=== PATIENT | male | born 2005 | race Two or more races ===

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

== ENCOUNTER 2023-01-09 17:43 | Emergency (ER) | payer MEDICAID, SELFPAY ==
[2023-01-09 18:17] VITALS: BP 109/74; PULSE 59; RESP 18; TEMP 36.9; O2SAT 99; BMI 19.8
--- NOTE | 2023-01-09 18:18 | ED.GENADULT ---
HPI - General Adult General Chief complaint: Head Injury Stated complaint: injury behind left ear Related Data Previous Rx's Medication Instructions Recorded doxycycline monohydrate 100 mg 100 mg PO BID 10 days #20 tabs 07/01/22 tablet valacyclovir 1 gram tablet 1,000 mg PO BID 10 days #20 tabs 07/08/22 (Valtrex) amoxicillin 875 mg tablet 875 mg PO BID #10 tabs 12/11/22 Allergies Allergy/AdvReac Type Severity Reaction Status Date / Time No Known Allergies Allergy Verified 01/09/23 18:17 [facility] Social History Social History Alcohol intake: current Alcohol intake frequency: holidays/special occasions only Substance Use Type: Marijuana Advance Directives: No Advance Directives Information Provided: No Current occupational status: employed 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 patietn denies any loss of concsisounss, or any other complaints. imaging ordered. Discharge Plan Discharge Clinical Impression: Closed head injury Patient Disposition: Elopement Prescriptions: No Action doxycycline monohydrate 100 mg tablet 100 mg PO BID 10 Days Qty: 20 0RF valacyclovir [Valtrex] 1 gram tablet 1,000 mg PO BID 10 Days Qty: 20 0RF amoxicillin 875 mg tablet 875 mg PO BID Qty: 10 0RF Interventions: LWBS Worksheet Last Done: 01/09/23 21:23 Discharge Date/Time: 01/09/23 21:23
== END 2023-01-09 21:23 | disposition left against medical advice (07) ==
PROVIDERS: Emergency Provider Emergency Medicine; PCP Internal Medicine
DX: S09.90XA Unspecified injury of head, initial encounter (principal); X58.XXXA Exposure to other specified factors, initial encounter; Y93.89 Activity, other specified; Y92.9 Unspecified place or not applicable; Y99.9 Unspecified external cause status
CPT/HCPCS: 99281

== ENCOUNTER 2024-03-21 20:14 | Emergency (ER) | payer MEDICAID, SELFPAY ==
--- NOTE | ~2024-03-21 | XR_ITS ---
EXAMINATION: XR HAND, RIGHT CLINICAL INFORMATION: Trauma. COMPARISON: None available. TECHNIQUE: Three views of the right hand. FINDINGS: There is a fracture of the distal tuft of the distal phalanx of the ring finger. Small fracture fragment slightly displaced from the tuft. XR/XR hand RT min 3V IMPRESSION: Fracture of the distal tuft of the distal phalanx of the ring finger. Electronically signed by: Gabriel Izquierdo MD 03/21/2024 10:17 PM EDT
[2024-03-21 20:37] VITALS: BP 115/56; PULSE 72; RESP 18; TEMP 37.1; O2SAT 95; BMI 21.3
--- NOTE | 2024-03-21 20:39 | ED_ITS ---
HPI - General Adult General Chief complaint: Extremity Injury, Upper Stated complaint: closed finger in car door, nail came off Time Seen by Provider: 03/21/24 21:37 Source: patient, RN notes reviewed and old records reviewed Mode of arrival: ambulatory Limitations: no limitations History of Present Illness ED Provider: Susana HPI narrative: 19-year-old male presents for evaluation of right 4th finger injury. Patient reports that after work this morning around 3:00 a.m. he accidentally slammed his right 4th finger in the car door. He presented to the ER earlier this morning but left prior to being seen due to wait time He represents due to the pain and bleeding Patient reports that the nail of the finger is ?hanging on by a thread. ? Related Data Previous Rx's ?Medication ?Instructions ?Recorded doxycycline monohydrate 100 mg 100 mg PO BID 10 days #20 tabs 07/01/22 tablet valacyclovir 1 gram tablet 1,000 mg PO BID 10 days #20 tabs 07/08/22 (Valtrex) amoxicillin 875 mg tablet 875 mg PO BID #10 tabs 12/11/22 cephalexin 500 mg capsule 500 mg PO QID #28 caps 03/21/24 Allergies Allergy/AdvReac Type Severity Reaction Status Date / Time No Known Allergies Allergy Verified 03/21/24 20:39 Review of Systems Constitutional: Constitutional: Denies body ache(s), Denies chills and Denies fever(s) Musculoskeletal: Musculoskeletal: Reports arthralgias, Reports joint swelling and Reports limited range of motion Integumentary/Breasts: Skin/Breast: Reports wounds PMFSH Social History Social History Alcohol intake: current Alcohol intake frequency: holidays/special occasions only Substance Use Type: Marijuana Advance Directives: No Advance Directives Information Provided: No Current occupational status: employed 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, 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 Exam ED Vital Signs: Vital Signs - 24 hr 03/21/24 20:37 Temperature 98.7 F Pulse Rate 72 Respiratory Rate 18 Blood Pressure 115/56 L Pulse Oximetry 95 Oxygen Delivery Method Room Air BMI result Body Mass Index 21.3 Const General: healthy appearing, comfortable, no acute distress, alert and awake Nutritional Appearance: well nourished Orientation/consciousness: patient oriented x3 Skin General skin exam: elasticity normal Neuro General: patient oriented x3 Cranial nerves: Yes Bilaterally intact EOM present Cognition (Neuro): normal cognition Extrem Other: Patient has mild edema to the distal right 4th finger. There is dried blood underneath the fingernail which is adhered to the nail bed crooked Course Course Course Narrative: This is an RME done by [facility] Negron: Additional HPI, ROS, PE not included below will be deferred to primary provider. 19-year-old male presenting with right hand pain after closing his hand in the car door. Nail came off 4th digit. Appearance: Alert.? Oriented X3.? No acute cardiopulmonary distress distress.? Head: Normocephalic, atraumatic, no step-offs or deformities ENT: Pharynx normal.??External ears normal, TMs normal bilaterally and EAC's normal. No pain with manipulation of external ears bilaterally. No mastoid tenderness. Neck: Normal inspection.? Neck supple.? CVS: Pulses normal.? Respiratory: No respiratory distress.? Abdomen: Soft and nontender.? Skin: ? Normal skin color. Extremities: 4th digit wrapped Neuro: Oriented X 3.? No motor deficit.? No sensory deficit. Reevaluation(s) Reevaluation #1: Attempted to remove the nail plate. The nail plate is detached from the nail bed, it is still intact to the distal aspect. After a brief manipulation of the nail plate to see how extensive it was still intact, the patient decided he did not want nail plate to be removed. The wound was dressed and the patient be discharged with antibiotics Time: 23:10 Medical Decision Making Medical Decision Making [facility] Narrative: 19-year-old male presents for evaluation of right 4th fingernail injury. His x- ray shows a fracture to the right 4th distal phalanx. We are having the patient's soak his finger in a solution of normal saline with pro benign.We will likely need to remove the finger nail. Patient's last tetanus was last year after a surgery Differential Diagnosis Differential Diagnoses: The differential diagnosis associated with the presentation includes Finger Testing 1 2fracture Laceration Nail injury Contusion Radiology Impression Discussion of test interpretation with radiology: I have reviewed the radiologist's reading. Radiologist Impression: FINDINGS: There is a fracture of the distal tuft of the distal phalanx of the ring finger. Small fracture fragment slightly displaced from the tuft. XR/XR hand RT min 3V IMPRESSION: Fracture of the distal tuft of the distal phalanx of the ring finger. Discharge Plan Discharge Clinical Impression: Finger fracture, right Patient Disposition: Home, Self-Care Instructions: Finger Fracture (ED) Additional Instructions: Take cephalexin 4 times daily for the next 7 days to prevent infection Keep the area clean and dry I do recommend that you follow-up with orthopedic hand surgery Return for new or worsening symptoms Prescriptions: New cephalexin 500 mg capsule 500 mg PO QID Qty: 28 0RF No Action doxycycline monohydrate 100 mg tablet 100 mg PO BID 10 Days Qty: 20 0RF valacyclovir [Valtrex] 1 gram tablet 1,000 mg PO BID 10 Days Qty: 20 0RF amoxicillin 875 mg tablet 875 mg PO BID Qty: 10 0RF Referrals: Sarah Tucker MD [Physician] - (finger fracture right 4th) Print Language: Upper Sorbian
[2024-03-21 23:20] VITALS: BP 115/56; PULSE 72; RESP 18; TEMP 37.1; O2SAT 95
== END 2024-03-21 23:22 | disposition home or self-care (01) ==
PROVIDERS: Emergency Provider Internal Medicine; PCP Internal Medicine
DX: S62.634A Displaced fracture of distal phalanx of right ring finger, initial encounter for closed fracture (principal); W23.1XXA Caught, crushed, jammed, or pinched between stationary objects, initial encounter; Y93.9 Activity, unspecified; Y92.9 Unspecified place or not applicable; Y99.9 Unspecified external cause status
CPT/HCPCS: 73130; 99282; 99283

== ENCOUNTER 2024-04-03 08:53 | Outpatient (REF) | payer MEDICAID, SELFPAY ==
--- NOTE | ~2024-04-03 | XR_ITS ---
EXAMINATION: XR HAND, RIGHT CLINICAL INFORMATION: M79.641 - Pain in right hand COMPARISON: 03/21/2024. 06/19/2022 TECHNIQUE: PA, lateral, and oblique views of the right hand. FINDINGS: Redemonstration of the distal tuft mildly comminuted fracture of the fourth digit distal phalanx. This has a stable appearance, with associated soft tissue disruption of the nailbed. Otherwise, no additional fractures, dislocation, or focal bone lesion. Questionable healed boxer's fracture. Carpus intact and normally aligned. Joint spaces without arthropathy. Soft tissues otherwise normal. No foreign body seen. XR/XR hand RT min 3V IMPRESSION: 1. No significant interval change in appearance of the mildly comminuted distal tuft fracture fourth digit. Electronically signed by: Al Joya MD 06/11/2024 10:12 AM VIVIENNE KHAN
== END 2024-04-03 08:54 | disposition home or self-care (01) ==
LOC: HO.HOSX 08:53
DX: M79.641 Pain in right hand (principal); S62.634B Displaced fracture of distal phalanx of right ring finger, initial encounter for open fracture
CPT/HCPCS: 73130; 99212

== ENCOUNTER → 2024-04-03 08:58 | Outpatient (BNV) | payer MEDICAID, SELFPAY | PROVIDERS: Visit Provider Radiology Diagnostic Radiology | DX: S62.635A Displaced fracture of distal phalanx of left ring finger, initial encounter for closed fracture (principal) | CPT/HCPCS: 73130 ==

== ENCOUNTER 2024-04-03 13:15 | Outpatient (AMB) | payer MEDICAID, SELFPAY ==
--- NOTE | 2024-04-03 13:32 | MHC.OFFVIS ---
Vital Signs 04/03/24 13:35 Height 5 ft 8 in Weight 152 lb BMI 23.1 Handedness Right Intake Visit Reasons: FC- right 4th distal phalanx fx DOI 03/21/24 Intake Note: Leon is a 19 year old right hand dominant male who presents today w/ his significant other as a new patient for an ED follow up for his right hand 4th digit injury DOI: 03/21/2024. Patient reports he accidentally slammed his 4th digit in the car door. Patient reports when he opens and straightens his fingers he has discomfort at the tip of his 4th digit of the right hand. He says if he hits it on accident it will go numbness for a few seconds. Denies tingling. His last dose of antibitics was 2 days ago. Patient says he has difficulty swallowing tablets. Hx of Right hand surgery, reconnected tendons in 5th digit in [facility] 2022. Patient needs a work note. Accompanied by: Significant Other Allergies No Known Allergies Allergy (Verified 04/03/24 13:40) HPI HPI FC- right 4th distal phalanx fx DOI 03/21/24: Details: Patient is a 19 YO right hand dominant M who presents for evaluation of right 4th distal phalanx fracture with associated nail avulsion injury, date of injury 03/21/24. The patient states that on this date, he closed his right ring finger in a car door, and rather than opening the door, he attempted to pull his finger out, resulting in the proximal nail being lifted from the finger, which led to signiicant bleeding of the finger. The patient states that he has been taking his antibiotics occasionally, and that he has been participating in normal activity with his right hand. There is currently no dressing on thefinger. When asked about why his hand is dirty, the patient states that he has been working on his car, and that the finger has not been covered during that time. Patient reports no pain or active discharge from the area, denies ever experiencing any purulent discharge, but states that his finger bleeds when he messes with it . No numbness or tingling. No other acute complaints or concerns. 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 Neuro: Normal sensation of the tips of all digits of the right hand at this time Vascular: Cap refill brisk Pain: Patient reports no tenderness to palpation about the distal phalanx of the right ring finger Patient reports no pain with range of motion of the right hand ROM: Patient is able to make a closed fist and extend all digits of the right hand fully and without difficulty Skin: Avulsion injury of the proximal aspect of the fingernail of the right ring finger noted with surrounding dried blood No active drainage at this time No erythema or evidence of infection noted General: No ecchymosis, erythema, or evidence of infection. Of note, the patient's hand is noted to be quite dirty during examination Psych: Appears grossly normal Affect normal Attitude cooperative Results Reviewed Results Reviewed: X-rays obtained in the office today and independently reviewed by me, Jose Alejandro Ramires PA-C, demonstrate displaced tuft fracture of the distal phalanx of the right ring finger. Assessment & Plan Assessment & Plan (1) Open fracture of distal phalanx of right ring finger: Code(s): S62.634B - Displaced fracture of distal phalanx of right ring finger, initial encounter for open fracture Category: Medical Plan 1. Open fracture of distal phalanx of right ring finger Date of injury 03/21/2024 Patient is educated about this injury Patient is educated about the typical recovery course Patient is educated on the importance of keeping this area clean, dry, intact, due to the risk of osteomyelitis in the complications of that. Patient is sent a new script of Augmentin 875-125 b.i.d., to encourage better compliance with antibiotics Patient is amenable to this plan Patient will follow-up in 1 week for repeat assessment, sooner with any acute concerns Orders: Orders XR hand RT min 3V Today M79.641 - Pain in right hand Medications: New amoxicillin-pot clavulanate 875-125 mg 1 tab PO BID 14 tabs 0RF 7 days Discontinued amoxicillin Discontinued Reason: Ancillary Entered New Order 875 mg PO BID 10 tabs 0RF cephalexin Discontinued Reason: Ancillary Entered New Order 500 mg PO QID 28 caps 0RF Coding Level of Care Code New Pt Level 3 (26795) Diagnoses Open fracture of distal phalanx of right ring finger S62.637T
[2024-04-03 13:35] VITALS: BMI 23.1
== END 2024-04-03 14:27 | disposition home or self-care (01) ==
PROVIDERS: PCP Internal Medicine
DX: S62.634B Displaced fracture of distal phalanx of right ring finger, initial encounter for open fracture (principal); W23.0XXA Caught, crushed, jammed, or pinched between moving objects, initial encounter
CPT/HCPCS: 99203

== ENCOUNTER 2024-04-10 08:49 | Outpatient (REF) | payer MEDICAID, SELFPAY ==
--- NOTE | ~2024-04-10 | XR_ITS ---
EXAMINATION: XR HAND, RIGHT CLINICAL INFORMATION: M79.641 - Pain in right hand COMPARISON: None available. TECHNIQUE: PA, lateral, and oblique views of the right hand. FINDINGS: Redemonstration of a mildly comminuted fracture of the distal tuft, fourth digit , distal phalanx. This has a stable appearance with associated soft tissue disruption of the nailbed. Fracture lines still well visualized and distinct. Otherwise, no additional fractures, dislocation, or focal bone lesion. Questionable healed boxer's fracture. Carpus intact and normally aligned. Joint spaces without arthropathy. Soft tissues otherwise normal. No foreign body seen. XR/XR hand RT min 3V IMPRESSION: 1. No significant interval change in appearance of the mildly comminuted distal tuft fracture fourth digit. Electronically signed by: Al Joya MD 06/11/2024 10:13 AM VIVIENNE KHAN
== END 2024-04-10 08:50 | disposition home or self-care (01) ==
LOC: HO.HOSX 08:49
DX: M79.641 Pain in right hand (principal); S62.634D Displaced fracture of distal phalanx of right ring finger, subsequent encounter for fracture with routine healing; W23.0XXD Caught, crushed, jammed, or pinched between moving objects, subsequent encounter
CPT/HCPCS: 73130; 99212

== ENCOUNTER 2024-04-10 13:23 | Outpatient (AMB) | payer MEDICAID, SELFPAY ==
[2024-04-10 13:50] VITALS: BMI 23.1
--- NOTE | 2024-04-10 13:50 | A.OFFVIS_ITS ---
Vital Signs 04/10/24 13:50 Height 5 ft 8 in Weight 152 lb BMI 23.1 Intake Visit Reasons: OV-right 4th distal phalanx fx DOI 03/21/24-w/xray Intake Note: Leon is a 19 year old right hand dominant male who presents today w/ his significant other for a follow up for his right hand 4th digit injury with associated nail avulsion, DOI: 03/21/2024. Patient continues to take antibiotics. Allergies No Known Allergies Allergy (Verified 04/10/24 13:53) HPI HPI OV-right 4th distal phalanx fx DOI 03/21/24-w/xray: Details: Leon is a 19 year old right hand dominant man, here with his partner, for a right ring finger distal phalanx tuft fracture, with nail avulsion, DOI: 03/21/24. He closed his hand in a car door. He says he is doing well overall. He continues to take his Abx as instructed, and denies any symptoms of infection. He says he still has another ~5 days of Abx left. He has difficulty swallowing pills and has not been great at taking his Abx b.i.d as instructed. He has a Hx of a previous right hand surgery, specifically a 5th digit tendon laceration repair done in [place] in 2022, S/P laceration, DOI: 06/20/22. 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 Review of Systems Const All systems reviewed & are unremarkable except as noted in HPI and below Physical Exam Vital Signs: BMI result Body Mass Index 23.1 Const General: cooperative, healthy appearing and no acute distress Orientation/consciousness: patient oriented x3 HEENT Head: Yes normocephalic and Yes atraumatic Eyes EOM: EOMs intact bilaterally Resp Effort & Inspection: normal respiratory effort and able to speak in complete sentences Cardio Jugular venous distension: no JVD Skin General skin exam: turgor normal Rashes: no rashes Neuro General: patient oriented x3 Extrem Other: Evaluation of Right Upper Extremity: The patient is alert, oriented, and in no acute distress Neuro: Median, Ulnar, Radial nerves motor and sensory intact and sensation is normal to the tips of all digits Vascular: Cap refill brisk ROM: He can make a fist with good strength, and extend all his digits Skin: No lacerations or abrasions. General: Ecchymosis resolving Sliver of nail is now being pushed out from underneath the eponycheal fold by the new nail growing in. No tenderness over the finger No Erythema or evidence of infection. Radiographs: 3 views of the right hand, with attention to the ring finger, were taken and viewed by me today in clinic. They show a ring finger distal phalanx tuft frac ture, minimally displaced, with satisfactory fracture alignment and [ ]. Psych Appearance: grossly normal Affect: normal affect Attitude: cooperative Office Procedures Fracture Care Details: Fracture care [id number] unless already billed Fracture Billing Code: Fracture Billing Code Assessment & Plan Assessment & Plan (1) Open fracture of distal phalanx of right ring finger: Code(s): S62.634B - Displaced fracture of distal phalanx of right ring finger, initial encounter for open fracture Category: Medical Plan Assessment & Plan: 1. Right ring finger distal phalanx tuft fracture, minimally displaced 2. Right ring finger nail bed injury DOI: 03/21/24, in a car door I educated him and his partner about this condition I discussed operative and non-operative treatment options We will continue to manage this conservatively I explained the signs and symptoms of infection, if the patient develops any new or worsening erythema, drainage, pain, or warmth they should contact the clinic or attend the ED. He will continue to take his Abx as instructed, until completed He may discontinue his splint at this time to allow for improved range of motion. I discussed activity modifications, he is to avoid any heavy lifting activities at this time. He should avoid any heavy impact activities or sports for the next 4 weeks. 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 He was given a note for work to return on 04/16/24. He agreed to try and avoid involving his ring fingertip in lifting for the next few weeks. He will follow up in 3-4 weeks to check his nail growth. No X-rays unless he has a new injury. This can be with YAS Berkowitz for Sarah Tucker MD by Pedro Pablo Lubanszky, medical insurance claims processor, on 04/10/24 at 2:20 PM, EST. Orders: Orders XR hand RT min 3V Today M79.641 - Pain in right hand Coding Level of Care Code Global (59078) Diagnoses Open fracture of distal phalanx of right ring finger S62.634B CPT Codes Fracture Care - Fracture Billing Code: Fracture Billing Code ([id number])
== END 2024-04-10 14:28 | disposition home or self-care (01) ==
PROVIDERS: PCP Internal Medicine
DX: S62.634B Displaced fracture of distal phalanx of right ring finger, initial encounter for open fracture (principal)
CPT/HCPCS: 99213

== ENCOUNTER → 2024-04-10 13:26 | Outpatient (BNV) | payer MEDICAID, SELFPAY | PROVIDERS: Visit Provider Radiology Diagnostic Radiology | DX: M79.641 Pain in right hand (principal) | CPT/HCPCS: 73130 ==

== ENCOUNTER 2025-05-04 07:14 | Emergency (ER) | payer SELFPAY ==
[2025-05-04 07:18] VITALS: BP 134/64; PULSE 70; RESP 20; TEMP 36.1; O2SAT 98; BMI 21.4
--- OUTSIDE RECORDS SUMMARY | 2025-05-04 07:39 | XMS_ITS | Encounter Summary ---
Author Organization [facility] Address [address] [place] [id number] Phone Care Team Providers Care [employer] Redevelopment Specialist Name Role Phone Dario Duong MD Primary Care Provider [phone] Encounter Details Date Type Department Care Team (Late st Contact Info) Description 01/31/2012 Documentation EM Family Medicine [address] [place] [address] Family Medicine, Physician [address] [place] [address] Social History Tobacco Use Types Packs/Day Years Used Date Smoking Tobacco: Never Assessed Sex and Gender Information Value Date Recorded Sex Assigned at Not on file Legal Sex Male 4:42 PM EDT Gender Identity Not on file Sexual Orientation Not on file documented as of this encounter Plan of Treatment Not on file documented as of this encounter Visit Diagnoses Not on filedocumented in this encounter Care Teams [employer] Specialist Relationship Specialty Start Date End Date Dario Duong MD [address] [place] [address] CLARITA Christianson [id number] PCP - General 02/18/17 08/18/22 documented as of this encounter
--- OUTSIDE RECORDS SUMMARY | 2025-05-04 07:39 | XMS_ITS | Encounter Summary ---
Author Organization [facility] Address [address] [place] [address] Phone Care Team Providers Care [place] Name Role Phone Dario Duong MD Primary Care Provider [phone] Encounter Details Date Type Department Care Team (Late st Contact Info) Description 02/24/2017 Conversion Encounter [facility] [address] [place] [address] Social History Tobacco Use Types Packs/Day Years [...] on filedocumented in this encounter Care Teams [place] Relationship Specialty Start Date End Date Dario Duong MD [address] [place] [address] PCP - General 02/18/17 08/18/22 documented as of this encounter
--- OUTSIDE RECORDS SUMMARY | 2025-05-04 07:39 | XMS_ITS | Clinical Summary ---
Author Organization [facility] Address [address] [place], [place] [id number] Phone Care Team Providers Care Tax Manager Cpa Name Role Phone Unavailable Primary Care Provider Unavailabl e Immunizations Immunization Administration Dates Next Due DTaP 5 08/10/2007, 5,2003,2003 ,2003 Hep B, ped/adol 2003,2003,2003 Hib (HbOC) 09/09/2004 Hib (PRP-T) 2003,2003,2003 IPV 08/10/2007,2003,2003 ,2003 Influenza Split 06/16/2010 Influenza, injectable, trivalent 06/12/2009,07/11,05/23/2008,04/16/2004 Influenza, intranasal, trivalent 03/11/2011 MMR 08/10/2007,04/16/2004 Pneumococcal Conjugate 09/09/2004,04/16/2004,11/2003,2003 Varicella 08/10/2007,04/16/2004 Family History Relation Name Status Comments Brother Alive Brother: Alive and well Father Alive Father: Alive a nd well Mother Alive Mother: Depress ion Other Family history of Elevated cholesterol, Family history of Asthma, Family history of Migraines, Family history of ADD/ADHD, Family history of Seizure disorder, Family history of Depression, Family history of Diabetes mellitus Sister Alive Sister: Asthma Social History Tobacco Use Types Packs/Day Years Used Date Smoking Tobacco: Never Assessed Sex and Gender Information Value Date Recorded Sex Assigned at Not on file Legal Sex Male 4:42 PM EDT Gender Identity Not on file Sexual Orientation Not on file Last Filed Vital Signs Vital Sign Reading Time Taken Comments Blood Pressure 80/60 03/11/2011 12:00 AM EDT Pulse 68 03/11/2011 12:00 AM EDT Temperature 35.6 C (96 F) 10/07/2011 12:00 AM EDT Respiratory Rate - - Oxygen Saturation - - Inhaled Oxygen Concentration - - Weight 22.7 kg (50 lb) 10/07/2011 12:00 AM EDT Height 123.2 cm (4' 0.5 ) 03/11/2011 12:00 AM ED T Body Mass Index - - Plan of Treatment Health Maintenance Due Date Last Done Comments DTaP,Tdap,and Td Vaccines (6 - Tdap) 2014 08/10/2007, 09/09/2004, 2003, Additional history exists HPV Vaccines (1 - Male 3-dose series) 2018 Men B Vaccine (1 of 2 - Standard) 2019 Influenza Vaccines (#1) 2025 03/11/20 11, 06/16/2010, 06/12/2009, Additional history exists COVID-19 Vaccine (2024-) 03/11/2025 Hepatitis B Vaccines Completed 2003, 2003, 2003 HIB Vaccines Completed 09/09/2004, 09/08, 2003, Additional history exists Pneumococcal Vaccine Completed 09/09/2004, 04/16/2004, 2003, Additional history exists IPV Vaccines Completed 08/10/2007, 12/09, 2003, Additional history exists MMR Vaccines Completed 08/10/2007, 04/16/2004 Varicella Vaccines Completed 08/10/2007, 04/16/2004 Hepatitis A Vaccines Aged Out No long er eligible based on patient's age to complete this topic Meningococcal Vaccine Aged Out No viktoriya magdy eligible based on patient's age to complete this topic
--- OUTSIDE RECORDS SUMMARY | 2025-05-04 07:39 | XMS_ITS | Clinical Summary ---
Author Organization [facility] Address [address] [place] [address] Care Team Providers Care Assembly Mechanic Name Role Phone Unavailable Primary Care Provider Unavailabl e Allergies No known active allergies Social History Tobacco Use Types Packs/Day Years Used Date Smoking Tobacco: Never Assessed Sex and Gender Information Value Date Recorded Sex Assigned at Not on file Legal Sex Male 5:13 AM EST Gender Identity Not on file Sexual Orientation Not on file Last Filed Vital Signs Vital Sign Reading Time Taken Comments Blood Pressure 149/78 06/13/2022 5:16 AM EST Pulse 89 06/13/2022 5:16 AM EST Temperature 36 C (96.8 F) 06/13/2022 5:16 AM EST Respiratory Rate 16 06/13/2022 5:16 AM EST Oxygen Saturation 99% 06/13/2022 5:16 AM EST Inhaled Oxygen Concentration - - Weight - - Height - - Body Mass Index - - Plan of Treatment Health Maintenance Due Date Last Done Comments Hepatitis C Virus Screening 2003 HIV Screening 2016 HPV Vaccines (1 - Male 3-dose series) 2018 DTaP/Tdap/Td Vaccines (1 - Tdap) 2022 Hepatitis B Vaccines (1 of 3 - 19+ 3-dose series) 2022 Influenza Vaccine 02/08/2025 03/11/2011, , 06/12/2009, Additional history exists COVID-19 Vaccine ( season) 2025 Pneumococcal Vaccine: Pediatric (0-5 Years) and At-Risk Patients (6 to 49 Years) Aged Out No longer eligible based on patient's age to complete this topic Insurance [facility] (AUTO/LIABILITY)
--- NOTE | 2025-05-04 08:13 | ED_ITS ---
HPI - General Adult General Chief complaint: Animal Bite Stated complaint: tick bite chest Time Seen by Provider: 05/04/25 08:02 Source: patient Mode of arrival: ambulatory Limitations: no limitations History of Present Illness ED Provider: Mishel Rosenberg PA-C HPI narrative: This is a 20yo male who presents to the ED for a tick bite on his left chest. He has no pertinent past medical history. Patient states that the tick attached yesterday and he removed the tick at home this morning. Reported total attachment time is less than 24 hours. He believes he was able to remove the entire tick and that there are no retained parts. He wants to make sure he has not contracted lyme disease. Denies rash, joint pain, and chest pain. Onset (ago): day(s) Location: chest Related Data Previous Rx's ?Medication ?Instructions ?Recorded amoxicillin 875 mg-potassium 1 tab PO BID 7 days #14 t abs 04/03/24 clavulanate 125 mg tablet Allergies Allergy/AdvReac Type Severity Reaction Status Date / Time No Known Allergies Allergy Verified 05/04/25 07:20 Review of Systems 2 Constitutional: Constitutional: Reports as per HPI Eyes: Eyes: Reports as per HPI ENT: Reports as per HPI Cardiovascular: Cardiovascular: Reports as per HPI Respiratory: Respiratory: Reports as per HPI Gastrointestinal: Gastrointestinal: Reports as per HPI Genitourinary: Genitourinary: Reports as per HPI Musculoskeletal: Musculoskeletal: Reports as per HPI Integumentary/Breasts: Skin/Breast: Reports as per HPI Neurologic: Reports as per HPI Psychiatric: Psychiatric: Reports as per HPI Endocrine: Endocrine: Reports as per HPI Hematologic/Lymphatic: Hematologic/Lymphatic: Reports as per HPI Allergic/Immunologic: Allergic/Immunologic: Reports as per HPI PMF Past Medical History Attestation statement: The following information was validated with the patient. 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 Physical Exam ED Vital Signs: Vital Signs - 24 hr 05/04/25 07:18 05/04/25 08:19 05/04/25 09:48 Temperature 97 F 97.9 F 97.9 F Pulse Rate 70 61 61 Respiratory Rate 20 18 18 Blood Pressure 134/64 114/69 114/69 Pulse Oximetry 98 99 99 Oxygen Delivery Method Room Air Room Air Room Air BMI result Body Mass Index 21.4 Const General: cooperative, no acute distress, alert and awake Nutritional Appearance: well nourished Orientation/consciousness: patient oriented x3 HENMT Head: Yes normal to inspection and Yes atraumatic Ears: hearing grossly normal bilaterally and external ears normal General nose exam: Normal external nose present, no nasal discharge noted and no epistaxis Face and sinus: Yes normal facial exam, No abrasion and No laceration Mouth: Normal oral and palatal mucosa present, no drooling and no muffled voice Eyes General: appearance normal, both eyes and all related structures Periorbital: periorbital findings normal Eyelids: Yes eyelids normal Conjunctivae: conjunctivae normal Pupils: Equal, round and reactive pupils present EOM: EOMs intact bilaterally Neck Neck: Yes normal visual inspection and Yes full ROM Chest Other: Resp Effort & Inspection: normal respiratory effort and able to speak in complete sentences Skin Lesions: other (1cm erythematous papule on the left chest ) Neuro General: patient oriented x3, moves all extremities and CN's II-XI intact bilaterally Cranial nerves: Yes Equal, round and reactive pupils present Cognition (Neuro): normal cognition Extrem General: Yes normal to inspection, Yes full ROM and Yes capillary refill normal Psych Appearance: grossly normal Mental Status: mental status grossly normal Affect: normal affect Attitude: cooperative Thought process: Normal thought process present Thought content: Normal thought content present Insight: Good insight present (Psych) Medications Administered Discontinued Medications Generic Name Dose Route Start Last Admin Trade Name Freq PRN Reason Stop Dose Admin Doxycycline Monohydrate 200 mg 05/04/25 08:16 05/04/25 08:46 Doxycycline Monohydrate 100 Mg Capsule PO 05/04/25 08:17 200 mg ONCE ONE Administration Medical Decision Making Medical Decision Making [facility] Narrative: Patient is a 20 year old assigned male at with no reported medical history presenting to the emergency department today with a left chest tick bite. Patient's physical exam was as noted in the physical exam portion of this note. No evidence of retained tick. I explained my physical exam findings to the patient. I answered all questions asked by the patient. Given the patient has a recent tick bite and we are in [place] - patient was given 200mg of prophylactic Doxycycline. Lyme + Tick Borne panel drawn and pending. Informed patient we would call if results positive. I stressed the importance of the patient taking his medication as directed (either prescribed or as the over the counter packaging recommends). I stressed the importance of the patient following up with his primary care provider. I stressed the importance of the patient returning to the emergency department immediately if his symptoms were to worsen or if he were to develop any dizziness, shortness of breath, difficulty breathing, chest pain, blurry vision, loss of vision, nausea, vomiting, abdominal pain, fever, chills, back pain, or any other complaints. Patient verbalized agreement and understanding with this treatment plan and discharge. Differential Diagnosis Differential Diagnoses: The differential diagnosis associated with the presentation includes Tick bite Lyme disease Tick borne illness Admission/Observation Consideration of admission/observation: Escalation of care including admission/observation considered Patient would have been admitted to the hospital had his clinical presentation warranted hospital admission. Prescription Management I considered prescription management with: Antibiotic (patient given 1 time prophylactic dose while in the department - will await Lyme + Tick Borne testing to give additional if necessary.) Discharge Plan Discharge Clinical Impression: Tick bite Patient Disposition: Home, Self-Care Instructions: Tick Bite (ED) Additional Instructions: Your lyme / tick testing is pending - you will be called if these come back POSITIVE. You were given a prophylactic dose of doxycycline. IF you are prescribed home medications and/or you are taking over the counter medications at home - it is very important you continue to do so as prescribed / directed unless told otherwise. Follow up with your primary care provider. Return to the emergency department immediately if your symptoms worsen or if you develop any numbness, tingling, dizziness, shortness of breath, difficulty breathing, chest pain, blurry vision, loss of vision, nausea, vomiting, abdominal pain, fever, chills, back pain, or any other complaints. Please see the information below about our Patient Portal. If you are not yet enrolled in the [facility] Patient Portal, you will receive an enrollment email invitation following your visit to any [facility] care setting. You may also self-enroll in the Patient Portal by visiting our website: [email or web address] The following information is required to access the Patient Portal: - Your [facility] Medical Record Number - Your personal home email address (must match what is in your electronic medical record, Registration staff can assist with this) - Name - Date of Capabilities of the Patient Portal: - Message some providers - View upcoming appointments - Access your health summary, medical history, and visit history - View current conditions and allergies - View procedure and lab results - View your medications, including guidelines, side effects, and precautions - Complete pre-appointment questionnaires requested by your provider - Ready summary reports of your office visits and procedures To access the Patient Portal Mobile [employer], follow these directions: - Search [employer] in the [employer] Store or [employer] Store - Download the Jaya - Search for [facility] - Enter your login/password Prescriptions: No Action amoxicillin-pot clavulanate 875-125 mg tablet 1 tab PO BID 7 Days Qty: 14 0RF Referrals: [place],[facility] [Primary Care Provider, Medical] Stand Alone Forms: Work/School Release Interventions: ED Discharge Assessment Last Done: 05/04/25 09:48 Discharge Date/Time: 05/04/25 09:49 Print Language: [place]
[2025-05-04 08:19] VITALS: BP 114/69; PULSE 61; RESP 18; TEMP 36.6; O2SAT 99
--- NOTE | 2025-05-04 08:27 | PC.NURSE ---
small scab on left chest from tick removal. tick was likely only attached for 10hrs or less.
[2025-05-04 09:48] VITALS: BP 114/69; PULSE 61; RESP 18; TEMP 36.6; O2SAT 99
[2025-05-06 22:03] LABS: Lyme Abs Screen <0.90 index
[2025-05-07 02:49] LABS: A. Phagocytphilium DNA,RT-PCR NOT DETECTED (NOT DETECTED); Babesia Microti DNA, RT-PCR NOT DETECTED (NOT DETECTED); Borrelia Miyamotoi,DNA RT-PCR NOT DETECTED (NOT DETECTED); E.Chaffeensis DNA RT-PCR NOT DETECTED (NOT DETECTED); Lyme(Borrelia ssp)DNA RT-PCR NOT DETECTED (NOT DETECTED)
== END 2025-05-04 09:49 | disposition home or self-care (01) ==
PROVIDERS: Physician Assistant Medical; Emergency Provider Emergency Medicine Emergency Medical Services
DX: S20.369A Insect bite (nonvenomous) of unspecified front wall of thorax, initial encounter (principal); W57.XXXA Bitten or stung by nonvenomous insect and other nonvenomous arthropods, initial encounter; Y93.9 Activity, unspecified; Y92.9 Unspecified place or not applicable; Y99.9 Unspecified external cause status
CPT/HCPCS: 36415; 86617; 86618; 87468; 87469; 87478; 87484; 87798; 99283